=== PATIENT | female | born 1990 ===

== ENCOUNTER 2017-02-26 08:54 | Emergency (ER) | payer OTHER ==
[2017-02-26 09:05] VITALS: PULSE 64
[2017-02-26 09:06] VITALS: BMI 24.7
--- NOTE | 2017-02-26 09:19 | ED PDOC ---
HPI: Female Pain Time Seen by Provider: 02/26/17 09:12 History Per: Patient Onset/Duration Of Symptoms: Days (1) Current Symptoms Are (Timing): Still Present Severity: Mild Pain Scale Rating Of: 1 Quality Of Discomfort: Cramping Additional Complaint(s): Vaginal spotting since last night assoc with lower abd cramping. Home preg positive x 3. Abnormal Vaginal Bleeding: Yes Past Medical History Vital Signs: Last Vital Signs Temp 96 F L 02/26/17 09:05 Pulse 64 02/26/17 09:05 Resp BP 105/62 02/26/17 09:05 Pulse Ox 100 02/26/17 09:05 - Medical History PMH: No Chronic Diseases - Family History Family History: States: Unknown Family Hx - Home Medications Home Medications: Ambulatory Orders Medication Instructions Recorded oxyCODONE/Acetaminophen [Percocet 1 tab PO Q4 PRN #0 tab 02/04/14 5/325 mg Tab] - Allergies Allergies/Adverse Reactions: Allergies Allergy/AdvReac Type Severity Reaction Status Date / Time No Known Allergies Allergy Verified 02/01/14 21:12 Review of Systems Constitutional: Negative for: Fever Gastrointestinal: Positive for: Abdominal Pain Genitourinary Female: Positive for: Vaginal Bleeding. Negative for: Dysuria, Frequency Physical Exam - Physical Exam Appears: Positive for: Non-toxic, No Acute Distress Skin: Positive for: Normal Color, Warm, DRY Gastrointestinal/Abdominal: Positive for: Bowel Sounds, Soft. Negative for: Tenderness Pelvic Exam: Positive for: External Exam Normal, No Masses, Blood (scant blood in vault). Negative for: Tender Adnexa, Tender Uterus - Laboratory Results Result Diagrams: 02/26/17 09:30 02/26/17 09:30 - ECG O2 Sat by Pulse Oximetry: 100 Disposition - Clinical Impression Clinical Impression: Threatened - Patient ED Disposition Is Patient to be Admitted: No Counseled Patient/Family Regarding: Studies Performed, Diagnosis, Need For Followup - Disposition [facility] Disposition: Routine/Home Disposition Time: 10:41 Condition: FAIR Additional Instructions: Regressa para repetir la prueba de shree en 2 penaloza Instructions: Threatened Miscarriage (ED) Print Language: IRISH
[2017-02-26 10:02] LABS: BASO % 0.6 % (0.0-2.0); EOS # 0.2 K/uL (0.0-0.7); HEMATOCRIT 39.7 % (34.0-47.0); LYMPH # 2.3 K/uL (1.0-4.3); LYMPH % 31.6 % (20.0-40.0); MEAN CELL VOLUME 83.6 fl (81.0-99.0); MEAN CORPUSCULAR HGB CONC 33.5 g/dL (33.0-37.0); MEAN PLATELET VOLUME 8.6 fl (7.2-11.7); MONO # 0.6 K/uL (0.0-0.8); MONO % 7.5 % (0.0-10.0); NEUT # 4.2 K/uL (1.8-7.0); NEUT % 57.3 % (50.0-75.0); NRBC % 0.1 % (0.0-0.0); RED CELL DISTRIBUTION WIDTH 13.5 % (11.5-14.5); WHITE BLOOD COUNT 7.4 K/uL (4.8-10.8)
[2017-02-26 10:14] LABS: CHLORIDE 106 mmol/L (98-107)
[2017-02-26 10:23] LABS: ALB/GLOB RATIO 1.5 (1.0-2.1); ALKALINE PHOSPHATASE 72 U/L (38-126); ALT/SGPT 40 U/L (9-52); AST/SGOT 23 U/L (14-36); BILIRUBIN,TOTAL 0.6 mg/dl (0.2-1.3); BLOOD UREA NITROGEN 7 mg/dl (7-17); CARBON DIOXIDE 26 mmol/L (22-30); GFR AFRICAN-AMERICAN > 60; GLUCOSE,RANDOM 95 mg/dL (65-105); POTASSIUM 3.8 MMOL/L (3.6-5.0); SODIUM 142 mmol/l (132-148); TOTAL PROTEIN 7.5 G/DL (6.3-8.2)
--- NOTE | 2017-02-26 10:47 | US ---
HISTORY: r/o ectopic COMPARISON: None available. TECHNIQUE: Real-time ultrasound examination of the pelvis was performed. FINDINGS: UTERUS: Measures 6.0 x 3.2 x 4.3 cm. Normal in size and appearance. No fibroid or other mass lesion seen. ENDOMETRIUM: Measures 10 millimeters mm in diameter. There is a very small hypoechoic gestational sac like structure in the central endometrial cavity. Gestational sac size is 3 millimeters. This would appear to represent a possible very early sub- 4 week intrauterine gestation. No pole or yolk sac is identified. CERVIX: No cervical abnormality identified. RIGHT OVARY: Measures 3.5 x 1.2 x 2.1 cm. No solid mass. Normal flow. A few follicles are noted. LEFT OVARY: Measures 3.6 x 1.8 x 1.7 cm. No solid mass. Normal flow. A few follicles are noted. Largest follicle measures 17 millimeters x 8 millimeters by 7 millimeters. FREE FLUID: No free fluid is seen in the pelvis. OTHER FINDINGS: None. IMPRESSION: Very small intrauterine gestational sac like structure without pole or yolk sac. Sac size measures below 4-5 weeks in age. Beta HCG laboratory value was 206. This may reflect an early intrauterine gestation, however serial beta HCG laboratory value evaluation and follow-up ultrasound in less than 1 week is suggested. At the present time an ectopic cannot be excluded.
[2017-02-26 11:15] VITALS: BP 104/60; TEMP 98.6; O2SAT 99
[2017-02-26 11:26] VITALS: RESP 16
== END 2017-02-26 11:25 | disposition home or self-care (01) ==
LOC: H.ER 08:54
DX: O20.0 Threatened abortion (principal)

== ENCOUNTER 2017-02-26 15:25 | Emergency (ER) | payer OTHER, SELFPAY ==
[2017-02-26 15:25] VITALS: BMI 24.7
[2017-02-26 15:32] VITALS: BP 109/56; PULSE 65; RESP 18; TEMP 98; O2SAT 99
--- NOTE | 2017-02-26 16:22 | ED PDOC ---
HPI: General Adult Time Seen by Provider: 02/26/17 15:43 Chief Complaint (Nursing): Female Genitourinary History Per: Institutional Aide ([id number]) Additional Complaint(s): 26yo F in ER for eval of persistent bleeding and cramping (pelvic)-pt was in ER this AM- pt was dx with had US shows sac without pole and low BHCG. PT advised to have repeat beta HCG in 3d if unable to get into a family clinic. PT returned because of persistent pain and bleeding. less than 2 pads since ER visit. PT requesting medication for pain. states she has not taken anything for pain. denies dizziness, change in skin color, SOB, Headache or numbness to LE. Past Medical History Reviewed: Historical Data, Nursing Documentation, Vital Signs Vital Signs: Last Vital Signs Temp 98.0 F 02/26/17 15:29 Pulse 65 02/26/17 15:29 Resp 18 02/26/17 15:29 BP 109/56 L 02/26/17 15:29 Pulse Ox 99 02/26/17 15:29 - Medical History PMH: No Chronic Diseases - Family History Family History: States: Unknown Family Hx - Home Medications Home Medications: Ambulatory Orders Medication Instructions Recorded oxyCODONE/Acetaminophen [Percocet 1 tab PO Q4 PRN #0 tab 02/04/14 5/325 mg Tab] Acetaminophen [Tylenol 325mg tab] 650 mg PO Q4 #30 tab 02/26/17 - Allergies Allergies/Adverse Reactions: Allergies Allergy/AdvReac Type Severity Reaction Status Date / Time No Known Allergies Allergy Verified 02/26/17 15:28 Review of Systems ROS Statement: Except As Marked, All Systems Reviewed And Found Negative Genitourinary Female: Positive for: Vaginal Bleeding, Pelvic Pain Physical Exam - Reviewed Nursing Documentation Reviewed: Yes Vital Signs Reviewed: Yes - Physical Exam Appears: Positive for: Well, Non-toxic, No Acute Distress Skin: Positive for: Normal Color, Warm, DRY Cardiovascular/Chest: Positive for: Regular Rate, Rhythm Respiratory: Positive for: CNT, Normal Breath Sounds Gastrointestinal/Abdominal: Positive for: Normal Exam, Bowel Sounds, Soft Back: Negative for: L CVA Tenderness, R CVA Tenderness Neurologic/Psych: Positive for: Alert, Oriented - ECG O2 Sat by Pulse Oximetry: 99 Medical Decision Making Medical Decision Making: Pt advised that with active miscarriage she will have bleeding and cramping however to return to ER if with severe bleeding > 3pads an hour and or with dizziness or change in skin color. PT advised to keep all obgyn appts made and if unabe to have f.u visit to return to ER. Pt Rx Tylenol for pain. Pt understands. Temp Pulse Resp BP Pulse Ox 98.0 F 65 18 109/56 L 99 02/26/17 15:29 02/26/17 15:29 02/26/17 15:29 02/26/17 15:29 02/26/17 16:22 Disposition - Clinical Impression Clinical Impression: Threatened - Patient ED Disposition Is Patient to be Admitted: No Counseled Patient/Family Regarding: Need For Followup, Rx Given - Disposition [facility]errals[facility] [[facility]] Disposition: Routine/Home Disposition Time: 16:25 Condition: STABLE Prescriptions: Acetaminophen [Tylenol 325mg tab] 650 mg PO Q4 #30 tab Instructions: Spontaneous Miscarriage (ED), Threatened Miscarriage (ED) Print Language: LITHUANIAN
== END 2017-02-26 16:40 | disposition home or self-care (01) ==
LOC: H.ER 15:25
DX: O20.0 Threatened abortion (principal)

== ENCOUNTER 2017-06-25 08:45 | Emergency (ER) | payer SELFPAY ==
[2017-06-25 08:48] VITALS: BMI 24.3
[2017-06-25 08:50] VITALS: BP 119/86; PULSE 81; RESP 20; TEMP 97.8; O2SAT 100
--- NOTE | 2017-06-25 09:02 | ED PDOC ---
HPI: CCC, URI, Sore Throat Time Seen by Provider: 06/25/17 08:53 Chief Complaint (Provider): Sore throat, fever and ear ache History Per: Patient History/Exam Limitations: no limitations Onset/Duration Of Symptoms: Days (x2) Current Symptoms Are (Timing): Still Present Location Of Pain: Ear(s) Associated Symptoms: Fever, Sore Throat, Other (runny nose). denies: Cough, Vomiting Ear Symptoms: Bilateral: Ear Pain Additional Complaint(s): Audra Burrows is a 26 year old female, with no significant past medical history, who presents to the emergency department complaining of sore throat, fever, ear ache and runny nose onset for x2 days. Patient is x5 weeks . She denies any cough or vomiting. No further medical complaints. PMD: None provided. Past Medical History Reviewed: Historical Data, Nursing Documentation, Vital Signs Vital Signs: Last Vital Signs Temp 97.8 F 06/25/17 08:48 Pulse 81 06/25/17 08:48 Resp 20 06/25/17 08:48 BP 119/86 06/25/17 08:48 Pulse Ox 100 06/25/17 09:07 - Medical History PMH: No Chronic Diseases - Surgical History Surgical History: No Surg Hx - Family History Family History: States: Unknown Family Hx - Home Medications Home Medications: Ambulatory Orders Medication Instructions Recorded oxyCODONE/Acetaminophen [Percocet 1 tab PO Q4 PRN #0 tab 02/04/14 5/325 mg Tab] Acetaminophen [Tylenol 325mg tab] 650 mg PO Q4 #30 tab 02/26/17 Azithromycin [Zithromax] 250 mg PO DAILY #6 tab 06/25/17 Oseltamivir [Tamiflu] 75 mg PO BID #10 cap 06/25/17 - Allergies Allergies/Adverse Reactions: Allergies Allergy/AdvReac Type Severity Reaction Status Date / Time No Known Allergies Allergy Verified 06/25/17 09:05 Review of Systems ROS Statement: Except As Marked, All Systems Reviewed And Found Negative Constitutional: Positive for: Fever ENT: Positive for: Ear Pain, Nose Discharge, Throat Pain Respiratory: Negative for: Cough Gastrointestinal: Negative for: Vomiting Physical Exam - Reviewed Nursing Documentation Reviewed: Yes Vital Signs Reviewed: Yes - Physical Exam Appears: Positive for: Well, Non-toxic, No Acute Distress Head Exam: Positive for: ATRAUMATIC, NORMAL INSPECTION, NORMOCEPHALIC Skin: Positive for: Normal Color, Warm, Dry Eye Exam: Positive for: Normal appearance ENT: Positive for: TM Is/Are (clear b/l), Pharyngeal Erythema. Negative for: Tonsillar Exudate Neck: Positive for: Painless ROM, Supple Cardiovascular/Chest: Positive for: Regular Rate, Rhythm. Negative for: Murmur Respiratory: Positive for: Normal Breath Sounds (clear to auscultation b/l). Negative for: Respiratory Distress Extremity: Positive for: Normal ROM. Negative for: Deformity, Swelling Lymphatic: Positive for: Other (Left anterior cervical node) Neurologic/Psych: Positive for: Alert, Oriented - ECG O2 Sat by Pulse Oximetry: 100 (RA) Pulse Ox Interpretation: Normal Medical Decision Making Medical Decision Making: Initial Plan: --Reevaluation Scribe Attestation: Documented by Rj Erwin, acting as a scribe for Darren Philippe MD Provider Scribe Attestation: All medical record entries made by the Scribe were at my direction and personally dictated by me. I have reviewed the chart and agree that the record accurately reflects my personal performance of the history, physical exam, medical decision making, and the department course for this patient. I have also personally directed, reviewed, and agree with the discharge instructions and disposition. Disposition - Clinical Impression Clinical Impression: Pharyngitis - Patient ED Disposition Is Patient to be Admitted: No Counseled Patient/Family Regarding: Diagnosis, Need For Followup, Rx Given - Disposition Referrals: [facility] [Outside] Disposition: Routine/Home Disposition Time: 09:09 Condition: FAIR Prescriptions: Azithromycin [Zithromax] 250 mg PO DAILY #6 tab Oseltamivir [Tamiflu] 75 mg PO BID #10 cap Instructions: Sore Throat in Adults Print Language: GREENLANDIC
== END 2017-06-25 09:14 | disposition home or self-care (01) ==
LOC: H.ER 08:45
DX: J02.9 Acute pharyngitis, unspecified (principal)

== ENCOUNTER 2018-02-17 11:30 | Emergency (ER) | payer SELFPAY ==
[2018-01-29 16:39] VITALS: BMI 24.3
[2018-02-17 17:15] VITALS: BP 113/71; PULSE 87
== END 2018-02-17 12:15 | disposition home or self-care (01) ==
LOC: H.EROB2 11:30 → H.EROB 11:32 → H.EROB2 12:15
DX: O26.93 Pregnancy related conditions, unspecified, third trimester (principal); R10.2 Pelvic and perineal pain; Z87.59 Personal history of other complications of pregnancy, childbirth and the puerperium; Z3A.39 39 weeks gestation of pregnancy

== ENCOUNTER 2018-02-23 07:20 | Inpatient (IN) | payer MEDICAID, SELFPAY ==
[2018-02-23 08:36] VITALS: BMI 32.5
[2018-02-23] MEDS ORDERED: Oxytocin 30 UNIT 30 UNITS/500 ML BAG IV ONE (08:40)
[2018-02-23] MEDS ORDERED: OXYTOCIN/0.9 % NS 20 UNIT/1,000 ML BAG IV ONE (08:40)
[2018-02-23] MEDS ORDERED: Lactated Ringer's 1,000 ML IV ONE (08:41)
[2018-02-23] MEDS: Lactated Ringer's 1,000 ML IV ONE ×2 (08:45→08:50)
[2018-02-23 09:04] LABS: BASO # 0.1 K/uL (0.0-0.2); BASO % 0.9 % (0.0-2.0); EOS # 0.2 K/uL (0.0-0.7); EOS % 1.7 % (0.0-4.0); HEMOGLOBIN 12.5 g/dL (12.0-16.0); LYMPH # 2.4 K/uL (1.0-4.3); LYMPH % 24.9 % (20.0-40.0); MEAN CELL VOLUME 83.1 fl (81.0-99.0); MEAN CORPUSCULAR HEMOGLOBIN 26.8 pg (27.0-31.0); MEAN CORPUSCULAR HGB CONC 32.3 g/dL (33.0-37.0); MEAN PLATELET VOLUME 8.9 fl (7.2-11.7); MONO # 0.8 K/uL (0.0-0.8); MONO % 8.5 % (0.0-10.0); NEUT # 6.1 K/uL (1.8-7.0); RBC 4.67 Mil/uL (3.80-5.20); RED CELL DISTRIBUTION WIDTH 14.8 % (11.5-14.5); WHITE BLOOD COUNT 9.6 K/uL (4.8-10.8)
[2018-02-23] MEDS ORDERED: ceFAZolin 2 GM in Sodium Chloride 0.9% 100 ML IVPB ONE (09:52)
[2018-02-23] MEDS ORDERED: Morphine 5 mg/10 ml preservative-free Inj(Duramorph) ONE (09:56)
[2018-02-23] MEDS ORDERED: Phenylephrine 10 mg/ml Inj ONE (09:58)
[2018-02-23] MEDS ORDERED: ePHEDrine 50 mg/ml Inj ONE (10:24)
[2018-02-23] MEDS ORDERED: DiphenhydrAMINE 50 mg/ml Inj IVP PRN ×2 (11:21→20:18)
[2018-02-23] MEDS ORDERED: Naloxone 0.4 mg/ml Inj (Adult) IVP PRN (11:21)
[2018-02-23] MEDS ORDERED: Oxycodone/Acetaminophen 5/325 mg Tab PO PRN ×2 (11:21→20:18)
--- NOTE | 2018-02-23 11:55 | OBDS ---
DELIVERY PERSONNEL Nurse Math Coach Certified: na Delivery Doctor: Dot Thomas MD Scrub Nurse: Judy Enrique OBT Certified Control Systems Technician: Mary Reis RN/Magdiel Corona Anesthesiologist: Ishan Dodson MD Vending Manager: robert Resident: / MATERNAL INFORMATION Delivery Anesthesia: Spinal Medications in Delivery: Pitocin 30 units in 500 cc Estimated Blood Loss (ml): 800 Placenta Cultured: No Maternal Complications: None RN Comments: Repeat C section tolerated well by pt.No acute distress noted.Delivery attended by Dr.P Noel,(fellow),(resident) Provider Comments: See Operative report LABOR SUMMARY EDC: 02/28/2018 00:00 No. Babies in Womb: 1 Attempted: No Labor Anesthesia: None LABOR INFORMATION Reason for Induction: Not Applicable Oxytocin: N/A Group B Beta Strep: Negative Antibiotics # of Doses: 1 Antibiotics Time of Last Dose: Ancef 2 gram IVPB @1000 Steroids Given: None Reason Steroids Not Administered: Not Applicable MEMBRANES Membranes Rupture Method: Artificial Rupture of Membranes: 02/23/2018 10:50 Length of Rupture (hrs): 0.00 Amniotic Fluid Color: Clear Amniotic Fluid Amount: Moderate Amniotic Fluid Odor: Normal STAGES OF LABOR Stage 3 hrs: 0 Stage 3 min: 1 CSECTION DELIVERY Primary Indication: Repeat Elective Secondary Indication: Repeat Elective CSection Urgency: Elective CSection Incidence: Repeat BABY A INFORMATION Infant Delivery Date/Time: 02/23/2018 10:50 Method of Delivery: Born in Route : No : N/A Forceps: N/A Vacuum Extraction: N/A Shoulder Dystocia : No SHOULDER DYSTOCIA BABY A Infant Delivery Date/Time: 02/23/2018 10:50 PRESENTATION/POSITION BABY A Presentation: Cephalic Cephalic Presentation: Vertex Breech Presentation: N/A PLACENTA INFORMATION BABY A Placenta Delivery Time : 02/23/2018 10:51 Placenta Method of Delivery: Manual Removal Placenta Status: Delivered SCORES BABY A Heart Rate 1 min: >100 bpm Resp Effort 1 min: Good Cry Reflex Irritability 1 min: Cough or Sneeze or Pulls Away Muscle Tone 1 min: Active Motion Color 1 min: Body [place], Extremities Blue Resuscitation Effort 1 min: Tactile Stimulation SCORE 1 MIN: 9 Heart Rate 5 min: >100 bpm Resp Effort 5 min: Good Cry Reflex Irritability 5 min: Cough or Sneeze or Pulls Away Muscle Tone 5 min: Active Motion Color 5 min: Body [place], Extremities Blue Resuscitation Effort 5 min: Tactile Stimulation SCORE 5 MIN: 9 INFANT INFORMATION BABY A Gestational Age at Delivery: 40.1 Gestational Status: Post-term Outcome : Liveborn Infant Condition : Stable Sex: Male IDENTIFICATION/MEDS BABY A ID Band Number: [id number] ID Band Location: Left Leg; Left Arm Vitamin K Given : Not Given Erythromycin Given: Not Given WEIGHT/LENGTH BABY A Infant Birthweight (gms): 3070 Weight (lb): 6 Infant Weight (oz): 12 Infant Length Inches: 20.00 Length cms: 50.8 CORD INFORMATION BABY A No. Cord Vessels: 3 Nuchal Cord : N/A Nuchal Cord Other: N/A True Knot: N/A Cord pH Baby Arterial: N/A Cord pH Baby Venous: N/A Cord Blood Taken: Yes Banking/Donate Info: N/A Suction: Mouth ASSESSMENT BABY A Infant Complications: None Physical Findings at Delivery: Within Normal Limits Infant Respirations: Appears Normal Special Events Planner/ALS Called : No Infant Care By: /Brandon,RN/Aubrie,RN Transferred To: Remains with Mother
--- NOTE | 2018-02-23 12:07 | OBADHP ---
Datetime: 02/23/2018 08:47 Admit Comment, IP Provider: 27 y/o @ 40.1wks w/CAM of 02/22/2018 based on LMP (PNP-Dr. Maru booker) is here for . She reports lower abdominal pressure, 4/10. Patient denies any complications in this delivery. Denies ctx, vb, loss of fluid, f/c/n/v, chest pain or shortness of breath. OBGYNhx: miscarriage-2016, [id number] PMH: denies Allergies: NKA Meds: PNV Surghx: c-sectoin 02/01/2014 Famhx: denies Sochx: denies eToH, elicit drugs or cigarette use ROS: all points reviewed and negative unless otherwise mentioned in HPI VS: stable Gen: laying in bed, breathing comfortably Cardio: s1s2, no murmurs Lungs: cta b/l Abd: Gravid, BS+, nontender Ext: abrasion on left lower extremity, nonedematous, calves nontender A/P: 27 y/o @ 40.1wks w/CAM of 02/22/2018 based on LMP (PNP-Dr. Tracy) is here for . - Case discussed with attending -YOSELYN Link JP, PGY-1 Patient at 40+1 wks. Patient previously desired however as patient at 40+ wks and remote from delivery, will proceed with repeat csection at this time. Plan of care again reviewed with patient a nd FOB with Syriac interpretor Melonie present and patient agreed with plan verbalized understanding. Will procede with planned scheduled repeat csection. --Dr. Tracy- Van Extremities - PN: Normal Abdomen - PN: Normal Lungs - PN: Normal Heart - PN: Normal General - PN: Normal FHR - Baseline A Provider: 130 Gestation - Est Wks by US: 40.1 IP Hx Assessment: The History has been Reviewed and is Current Vital Signs Provider: Reviewed; Within Normal Limits IP Chief Complaint: Maternal discomfort; Other EGA AdmitDate IP: 39.2 IP Adm Impression: Term, intrauterine Datetime: 02/17/2018 12:00 Thyroid - PN: Normal IP Fetus A Comments: Reactive NST Contraction Comments Provider: Sporadic NICHD Variability Prov Fetus A: Moderate 6-25bpm NICHD Accel Fetus A IP Provider: [id number] NICHD Decel Fetus A IP Provider: None Dilatation, Provider: NA IP Admit Plan: Discharge home
[2018-02-23] MEDS ORDERED: Lactated Ringer's 1,000 ML IV SCH (17:00)
[2018-02-23] MEDS: Lactated Ringer's 1,000 ML IV SCH (20:34)
--- NOTE | 2018-02-24 01:08 | OP ---
PROCEDURE DATE: 02/23/2018 PREOPERATIVE DIAGNOSES: Term at 40 plus weeks with previous section, remote from delivery. POSTOPERATIVE DIAGNOSES: Term at 40 plus weeks with previous section, remote from delivery, delivered. PROCEDURE: Repeat low-transverse section. SURGEON: Dara Thomas MD CHARACTER ACTRESS: Dr. Phuong Rossi ESTIMATED BLOOD LOSS: 800 mL. INTRAVENOUS FLUIDS: 2000 mL lactated Ringer's and Pitocin. URINE OUTPUT: 800 mL, clear at the end of procedure. FINDINGS: A live male with Apgars of 9 and 9, weight 3070 g, delivered in vertex presentation. Amniotic fluid clear. There were omental adhesions noted attached to the anterior abdominal wall, and these were taken down with the Bovie and free ties. DESCRIPTION OF PROCEDURE: The patient was taken to the operating room and given spinal anesthesia without difficulty. She was then prepped and draped in a normal supine position with the leftward tilt. The keloid scar from her previous section was removed with the scalpel and Bovie and handed off of the field. The incision was then carried down to the underlying fascia with the scalpel, and the scalpel was used to incise the fascia in the midline. This incision was extended laterally using the Bovie, then bluntly. Attention was then turned to the inferior aspect of the fascial incision, which was grasped with Robert clamps, elevated, and the underlying rectus muscles were dissected off with the Bovie, then bluntly. Attention was then turned to the superior aspect of the fascial incision, which in a similar fashion, was dissected off of the Bovie and then bluntly. The rectus muscles were meticulously in the midline using the scalpel. This incision was extended laterally, superiorly and inferiorly with the Bovie paying close attention to the bladder. Adhesions of the omentum to the anterior abdominal wall were then also taken down by clamping both sides using Smita clamps, with the Bovie and tying off the cut sutures with an 0 Vicryl free tie. Good hemostasis was noted. The bladder blade was inserted. The vesicouterine peritoneum was tented up and entered with the Metzenbaum scissors. Incision was extended laterally, and the bladder flap was created digitally. The bladder blade was then re-inserted. The lower uterine segment was incised in a transverse fashion with the scalpel. The incision was then extended cephalocaudally bluntly. All instruments were removed and the baby was delivered in vertex presentation atraumatically. The nose and mouth were suctioned on the abdomen. The cord was doubly clamped and cut. The was handed off to the awaiting geophysical laboratory chief. Cord blood was taken. The placenta was extracted spontaneously and intact. The uterus was exteriorized and cleared of all clots and debris. Extension of the uterine incision on the left side was then repaired first using the 1 Vicryl suture, and good hemostasis was then noted. Following this, the uterine incision was then repaired with 1 Vicryl suture in a running locked fashion, and again good hemostasis was noted. Inspection of the uterine incision revealed small amount of bleeding at the right angle of this incision and one further [id number]-agcla suture was then placed, and hemostasis was noted throughout. Copious irrigation was performed. The uterus was returned to the abdomen. The gutters were cleared of all clots and debris. The peritoneum was then closed with a 2-0 Vicryl in a running fashion, and three horizontal mattress sutures were then placed in the muscles for reapproximation of this layer. The fascia was then reapproximated with 0 Vicryl bilaterally to the midline. The Bovie was used to obtain good hemostasis on the subcutaneous fat layer, and this layer was then closed with four interrupted stitches using 3-0 plain suture, and the skin was closed with a 3-0 Monocryl suture on a Manuel needle for subcuticular stitch. The incision was covered with Steri-Strips and sterile dressing. The patient tolerated the procedure well. Sponge, lap, and needle counts were correct x4. Ancef 2 g was given preoperatively. The patient was taken to the recovery room in stable condition. There was no injury to the bladder, bowel, ureter, or baby. Dara Thomas MD
[2018-02-24] MEDS: Lactated Ringer's 1,000 ML IV SCH (04:18)
[2018-02-24 08:30] LABS: MEAN CELL VOLUME 85.4 fl (81.0-99.0); MEAN CORPUSCULAR HEMOGLOBIN 26.9 pg (27.0-31.0); MEAN CORPUSCULAR HGB CONC 31.5 g/dL (33.0-37.0); RBC 4.45 Mil/uL (3.80-5.20); RED CELL DISTRIBUTION WIDTH 14.6 % (11.5-14.5); WHITE BLOOD COUNT 14.7 K/uL (4.8-10.8)
[2018-02-24] MEDS: Multivitamin With Minerals Tab PO SCH (08:42)
[2018-02-24] MEDS: Lansinoh for Breast Feeding Mothers TP PRN (08:42)
[2018-02-24] MEDS: Simethicone 80 mg Chewtab PO PRN ×2 (08:42→22:16)
--- NOTE | 2018-02-24 08:56 | OBPPN ---
Datetime: 02/24/2018 06:18 PP Pain Prov: Within normal limits PP Nausea Prov: Denies PP Flatus Prov: No PP BM Prov: No PP Breasts Prov: Normal PP Heart Prov: Normal PP Lungs Prov: Normal PP Abdomen/Uterus Prov: Normal PP Lochia Prov: Normal PP Vulva/Perineum Prov: Not Done PP CVA Tenderness Prov: Not Done PP Extremities Prov: Normal PP C/S Incision Prov: Normal PP Progress Prov: Normal PP Impression Prov: Normal progression PP Plan Prov: Continue present management PP Progress Note Prov: Voyce:[id number] POD1 S: 27yo . Seen and examined at bedside. Patient had an uneventful overnight. Pt reports mil d pelvic pain controlled with pain meds. Breast feeding with pain. Tolerating PO diet well. Dorsey sti ll in will be removed this AM, No Bowel movement or passing gas yet. Denies fever/chills, diarrhea/co nstipation, nausea/vomiting, CP/SOB, dizziness, calf pain. Declined circumcision of infant O: PHYSICAL EXAM: GEN: Resting comfortably in bed, NAD HEENT: NCAT LUNGS: Decreased breath sounds, no wheezing, rhonchi, or rales CVS: RRR, S1, S2, no m/r/g ABD: ND, +BS, firm fundus @ umbilical level. Incision covered, dressing clean dry and intact no bl ood noted, soft, appropriate TTP EXT: Wearing SCD's A/P: 27yo [id number] on 02/23/18 @ 10:50. POD1 Encouraged -ordered Lanolin for pain Advance to regular diet today Discontinue Dorsey OOB with caution Continue vitamin Ibuprofen 600 mg 1 tab q6 hrs po if mild pain. Percocet 5/325 mg 1-2 tablets po q 6 hrs if severe pain Colace 100mg PO BID for constipation Simethicone 80mg BID for gas Anticipate discharge to home on 02/26/18 F/U in 1 week appt and 4-6 weeks post- with [facility]- emailed Gwnedolyn de leon Case reviewed and discussed with Attending Sammie Whipple M.D. PGY-1 Attending addendum: I saw and examined the patient at bedside myself. I reviewed the resident note above and agree wit h findings and management. Dressing removed, incision is clean/dry/intact. Pain well controlled, ambu lating, eating w/o nausea or vomiting. No fever, no chills, no cp, no sob. continue care post op. Demetrice Ramey MD IP PP Procedures: None Vital Signs Provider PP: Reviewed; Within Normal Limits
[2018-02-24] MEDS ORDERED: Multivitamin With Minerals Tab PO SCH (09:00)
[2018-02-24] MEDS ORDERED: Hepatitis B Vaccine PED 10 mcg/0.5 mL Inj IM ONE ×3 (09:00→10:00)
[2018-02-25] MEDS: Simethicone 80 mg Chewtab PO PRN ×2 (08:45→22:36)
[2018-02-25] MEDS: Lansinoh for Breast Feeding Mothers TP PRN (08:45)
[2018-02-25] MEDS: Multivitamin With Minerals Tab PO SCH (10:55)
--- NOTE | 2018-02-26 07:29 | OBPPN ---
Datetime: 02/26/2018 06:07 PP Pain Prov: Within normal limits PP Nausea Prov: Denies PP Flatus Prov: Yes PP BM Prov: No PP Breasts Prov: Not Done PP Heart Prov: Normal PP Lungs Prov: Normal PP Abdomen/Uterus Prov: Normal PP Lochia Prov: Normal PP Vulva/Perineum Prov: Not Done PP CVA Tenderness Prov: Not Done PP Extremities Prov: Normal PP C/S Incision Prov: Normal PP Progress Prov: Normal PP Impression Prov: Normal progression PP Plan Prov: Continue present management; Discharge PP Progress Note Prov: Voyce: [id number] POD3 S: 27yo . Seen and examined at bedside. Patient had an uneventful overnight. Pt reports mil d pelvic pain controlled with pain meds. Breast and bottle feeding well. Tolerating PO diet. Voiding well, no hematuria, Denies bowel movement but is passing gas. Denies fever/chills, diarrhea/constipat ion, nausea/vomiting, CP/SOB, dizziness, or calf pain. Declined circumcision of infant O: PHYSICAL EXAM: GEN: Resting comfortably in bed, NAD HEENT: NCAT LUNGS: CTA, no wheezing, rhonchi, or rales CVS: RRR, S1, S2, no m/r/g ABD: ND, +BS, firm fundus @ umbilical level. Incision clean dry and intact no blood noted, soft, a ppropriate TTP EXT: no edema A/P: 27yo [id number]/p on 02/23/18 @ 10:50. POD3 Encouraged Tolerating regular diet OOB with caution Continue vitamin Ibuprofen 600 mg 1 tab q6 hrs po if mild pain. Percocet 5/325 mg 1-2 tablets po q 6 hrs if severe pain Colace 100mg PO BID for constipation Simethicone 80mg BID for gas Discharge to home today 02/26/18 F/U in 1 week appt and 4-6 weeks post- with [facility]-Pt has appt o n 03/03/18. Case reviewed and discussed with Attending Sammie Whipple M.D. PGY-1 OB Hospitalist Addendum: Pt seen and examined by me. Amairani w/ above. POD 3 s/p repeat c/s, latisha harris well, breast and bottle feeding. Dicharge home today. (ES) IP PP Procedures: None Vital Signs Provider PP: Reviewed; Within Normal Limits
[2018-02-26] MEDS: Multivitamin With Minerals Tab PO SCH (09:41)
[2018-02-26 20:42] VITALS: BP 111/57; PULSE 79; RESP 19; TEMP 98.3; O2SAT 99
== END 2018-02-26 13:10 | disposition home or self-care (01) | DRG 540 ==
LOC: H.EROB2 07:20 → H.L&D 09:06 → H.OB/GYN 15:25
PROVIDERS: ADMIT Obstetrics & Gynecology; ATTEND Obstetrics & Gynecology
PROC: 10D00Z1 Extraction of Products of Conception, Low, Open Approach (ICD-10-PCS; principal; 2018-02-23)
PROC: 4A1HXCZ Monitoring of Products of Conception, Cardiac Rate, External Approach (ICD-10-PCS; 2018-02-23)
DX: O34.211 Maternal care for low transverse scar from previous cesarean delivery (principal); O48.0 Post-term pregnancy; K59.00 Constipation, unspecified; Z37.0 Single live birth; Z3A.40 40 weeks gestation of pregnancy